=== PATIENT | female | born 1980 | race Caucasian/White ===

== ENCOUNTER 2023-04-22 13:32 | Outpatient (CLI) | payer BC | END 2023-04-22 13:33 | disposition home or self-care (01) | LOC: BICULT 13:32 | PROVIDERS: ATTEND Obstetrics & Gynecology | DX: N63.15 Unspecified lump in the right breast, overlapping quadrants (principal) ==

== ENCOUNTER → 2023-05-02 | Day surgery (SDC) | payer BC | LOC: BICULT 12:46 | PROVIDERS: ATTEND Obstetrics & Gynecology | PROC: 0HB5XZX Excision of Chest Skin, External Approach, Diagnostic (ICD-10-PCS; principal; 2023-05-02) | DX: D24.1 Benign neoplasm of right breast (principal); N63.15 Unspecified lump in the right breast, overlapping quadrants; R92.8 Other abnormal and inconclusive findings on diagnostic imaging of breast | CPT/HCPCS: 19083; 88305 ==